=== PATIENT | female | born 1965 | race Caucasian/White ===

== ENCOUNTER 2017-08-18 20:37 | Emergency (ER) | payer BC ==
[~2017-08-18] VITALS: Ht 162.6 cm; Wt 78.6 kg
[~2017-08-18 20:37] MED LIST: ASPIRIN81 MG PO; RANITIDINE150 M1 OR; ULTRAM50 M1 OR
[2017-08-18] MEDS ORDERED: LEVOTHYROXIN50 MCG PO (20:47)
[2017-08-18 21:19] LABS: HEMATOCRIT 36.2 % (37.0-47.0); IMMATURE GRANULOCYTES 0.2 % (0.0-1.0); MEAN CELL VOLUME 88.1 fL CALC (80.0-100.0); MEAN CORPUSCULAR HGB 29.2 pG CALC (26.0-32.0); MEAN CORPUSCULAR HGB CONC 33.1 g/L CALC (32.0-36.0); NEUT# 2.18 thou/uL (2.00-7.15); RED BLOOD COUNT 4.11 mill/uL (4.20-5.60); RED CELL DISTRI WIDTH 12.6 % (11.5-15.5)
[2017-08-18 21:52] LABS: ALBUMIN 4.2 g/dL (3.2-5.0); ALKALINE PHOSPHATASE 88 u/l (38-126); ANION GAP 16 (6-22 (CALC)); BILIRUBIN, TOTAL 0.4 mg/dL (0.0-1.4); BUN 8 mg/dL (7-17); BUN/CREATININE RATIO 11 (12-20 (CALC)); CALCIUM 8.9 mg/dL (8.4-10.2); CARBON DIOXIDE 25 mmol/l (22-30); CHLORIDE 108 mmol/l (95-108); CREATININE 0.7 mg/dL (0.5-1.0); GFR > 60 ML/MIN (>=60 (CALC)); GFR FOR AFR.AMER. > 60 ML/MIN (>=60 (CALC)); GLUCOSE 111 mg/dL (65-105); POTASSIUM 3.6 mmol/l (3.5-5.1); SGOT/AST 23 u/l (14-36); SGPT/ALT 29 u/l (9-52); SODIUM 145 mmol/l (137-146); TOTAL PROTEIN 6.7 g/dL (6.3-8.2)
[2017-08-18 22:04] LABS: MYOGLOBIN 47 ng/mL (0 - 62)
[2017-08-18] MEDS ORDERED: TORADOL PO (22:58)
[2017-08-18 23:33] VITALS: BP 108/57
== END 2017-08-18 23:40 | disposition home or self-care (01) | DRG 313 ==
LOC: ED 20:37
PROVIDERS: Emergency Medicine
DX: R07.89 Other chest pain (principal)

== ENCOUNTER 2018-02-02 21:42 | Emergency (ER) | payer BC ==
[~2018-02-02] VITALS: Ht 162.6 cm; Wt 82.4 kg
[~2018-02-02 21:42] MED LIST changes: +LEVOTHYROXIN50 MCG PO; +TORADOL PO
[2018-02-02] MEDS ORDERED: PREDNISONE10 MG PO (22:32)
[2018-02-02] MEDS ORDERED: TRAMADOL HCL50 MG PO (22:32)
[2018-02-02 22:50] VITALS: BP 123/77
== END 2018-02-02 22:53 | disposition home or self-care (01) | DRG 552 ==
LOC: ED 21:42
DX: M54.42 Lumbago with sciatica, left side (principal); R20.0 Anesthesia of skin

== ENCOUNTER 2021-06-07 21:23 | Emergency (ER) | payer BC ==
[~2021-06-07] VITALS: Ht 162.6 cm; Wt 78.0 kg
[~2021-06-07 21:23] MED LIST changes: +PREDNISONE10 MG PO; +TRAMADOL HCL50 MG PO
[2021-06-07 21:39] VITALS: BP 132/77
[2021-06-07] MEDS ORDERED: IBUPROFEN600 MG PO (22:23)
== END 2021-06-07 22:38 | disposition home or self-care (01) | DRG 563 ==
LOC: ED 21:23
DX: S83.91XA Sprain of unspecified site of right knee, initial encounter (principal); S80.01XA Contusion of right knee, initial encounter; W19.XXXA Unspecified fall, initial encounter
CPT/HCPCS: L1830

== ENCOUNTER 2022-08-07 18:17 | Emergency (ER) | payer BC ==
[~2022-08-07 18:17] MED LIST changes: +IBUPROFEN600 MG PO
== END 2022-08-07 19:15 | disposition left against medical advice (07) | DRG 951 ==
LOC: ED 18:17 → LWOBS 19:15
DX: Z53.21 Procedure and treatment not carried out due to patient leaving prior to being seen by health care provider (principal)

== ENCOUNTER 2022-09-08 21:42 | Emergency (ER) | payer BC ==
[~2022-09-08] VITALS: Ht 162.6 cm; Wt 77.0 kg
[2022-09-08 21:59] VITALS: BP 126/70
[2022-09-08 22:15] VITALS: BP 108/63
[2022-09-08 22:30] VITALS: BP 104/64
[2022-09-08 22:58] LABS: BASO% 0.3 % (0-3); EOS% 1.5 % (0-8); HEMATOCRIT 35.1 % (37.0-47.0); HEMOGLOBIN 11.7 g/dl (12.0-16.0); IMMATURE GRANULOCYTES 0.1 % (0.0-5.0); LYMPH% 26.6 % (15-41); MEAN CORPUSCULAR HGB CONC 33.3 g/dL CAL (32.0-36.0); MONO% 9.9 % (2-13); NEUT# 4.24 thou/uL (2.00-7.15); NEUT% 61.6 % (42-76); RED BLOOD COUNT 3.9 mill/uL (4.20-5.60); RED CELL DISTRI WIDTH 12.7 % (11.5-15.5)
[2022-09-08 23:00] VITALS: BP 110/65
[2022-09-08 23:13] LABS: ALBUMIN 4.3 g/dL (3.2-5.0); ALKALINE PHOSPHATASE 78 u/l (38-126); ANION GAP 9 (6-22 (CALC)); BILIRUBIN, TOTAL 0.2 mg/dL (0.0-1.4); BUN 22 mg/dL (7-17); BUN/CREATININE RATIO 25 (12-20 (CALC)); CARBON DIOXIDE 28 mmol/l (22-30); CHLORIDE 107 mmol/l (95-108); CREATININE 0.9 mg/dL (0.5-1.0); GFR FOR AFR.AMER. > 60 ML/MIN (>=60 (CALC)); GFR OTHER RACES > 60 ML/MIN (>=60 (CALC)); POTASSIUM 3.9 mmol/l (3.5-5.1); SGOT/AST 24 u/l (14-36); SODIUM 140 mmol/l (137-146); TOTAL PROTEIN 6.8 g/dL (6.3-8.2)
[2022-09-08 23:15] VITALS: BP 112/62
[2022-09-08 23:21] LABS: URINE BILIRUBIN - DIPSTICK NEGATIVE (NEGATIVE); URINE BLOOD DIPSTICK NEGATIVE (NEGATIVE); URINE COLOR YELLOW; URINE GLUCOSE - DIPSTICK NEGATIVE (NEGATIVE); URINE KETONE NEGATIVE (NEGATIVE); URINE LEUK ESTERASE NEGATIVE (NEGATIVE); URINE PH 5.5 (4.5-8.0); URINE PROTEIN - DIPSTICK NEGATIVE (NEG-TRACE); URINE SPECIFIC GRAVITY >=1.030; URINE UROBILINOGEN - DIPSTICK 0.2 E.U./dL (0.2)
[2022-09-08 23:24] LABS: URINE NITRITE - DIPSTICK NEGATIVE (Negative)
[2022-09-08 23:30] VITALS: BP 119/74
[2022-09-09 00:23] VITALS: BP 119/74
[2022-09-09] MEDS ORDERED: CYCLOBENZAPRINE10 MG PO (00:23)
[2022-09-09] MEDS ORDERED: NAPROXEN500 MG PO (00:23)
== END 2022-09-09 00:46 | disposition home or self-care (01) | DRG 552 ==
LOC: ED 21:42
PROVIDERS: Emergency Medicine
DX: M47.816 Spondylosis without myelopathy or radiculopathy, lumbar region (principal)

== ENCOUNTER 2022-10-04 22:00 | Emergency (ER) | payer BC ==
[~2022-10-04] VITALS: Ht 160 cm; Wt 77.2 kg
[~2022-10-04 22:00] MED LIST changes: +CYCLOBENZAPRINE10 MG PO; +NAPROXEN500 MG PO
[2022-10-04 23:14] LABS: URINE BILIRUBIN - DIPSTICK NEGATIVE (NEGATIVE); URINE BLOOD DIPSTICK NEGATIVE (NEGATIVE); URINE COLOR YELLOW; URINE GLUCOSE - DIPSTICK NEGATIVE (NEGATIVE); URINE KETONE NEGATIVE (NEGATIVE); URINE LEUK ESTERASE TRACE (NEGATIVE); URINE PH 6.5 (4.5-8.0); URINE PROTEIN - DIPSTICK NEGATIVE (NEG-TRACE); URINE SPECIFIC GRAVITY 1.015; URINE UROBILINOGEN - DIPSTICK 0.2 E.U./dL (0.2)
[2022-10-04 23:16] LABS: BASO% 0.4 % (0-3); EOS% 0.8 % (0-8); HEMATOCRIT 39.6 % (37.0-47.0); HEMOGLOBIN 12.6 g/dl (12.0-16.0); IMMATURE GRANULOCYTES 0.5 % (0.0-5.0); LYMPH% 23.3 % (15-41); MEAN CELL VOLUME 88.6 fL CALC (80.0-100.0); MEAN CORPUSCULAR HGB 28.2 pG CALC (26.0-32.0); MEAN CORPUSCULAR HGB CONC 31.8 g/dL CAL (32.0-36.0); MONO% 9.9 % (2-13); NEUT# 5.09 thou/uL (2.00-7.15); NEUT% 65.1 % (42-76); RED BLOOD COUNT 4.47 mill/uL (4.20-5.60); RED CELL DISTRI WIDTH 12.6 % (11.5-15.5)
[2022-10-04 23:18] LABS: URINE NITRITE - DIPSTICK NEGATIVE (Negative)
[2022-10-04 23:27] LABS: ALBUMIN 4.4 g/dL (3.2-5.0); ALKALINE PHOSPHATASE 83 u/l (38-126); ANION GAP 9 (6-22 (CALC)); BUN 13 mg/dL (7-17); BUN/CREATININE RATIO 18 (12-20 (CALC)); CARBON DIOXIDE 26 mmol/l (22-30); CHLORIDE 105 mmol/l (95-108); CREATININE 0.7 mg/dL (0.5-1.0); GFR FOR AFR.AMER. > 60 ML/MIN (>=60 (CALC)); GFR OTHER RACES > 60 ML/MIN (>=60 (CALC)); POTASSIUM 3.8 mmol/l (3.5-5.1); SGOT/AST 28 u/l (14-36); SODIUM 136 mmol/l (137-146); TOTAL PROTEIN 7.2 g/dL (6.3-8.2)
[2022-10-04 23:29] LABS: BILIRUBIN, TOTAL 0.5 mg/dL (0.02-1.3)
[2022-10-05] VITALS (10 sets, daily range): BP systolic 92–108; BP diastolic 61–73
[2022-10-05] MEDS ORDERED: TRAMADOL HCL50 MG PO (02:07)
== END 2022-10-05 03:00 | disposition home or self-care (01) | DRG 392 ==
LOC: ED 22:00
PROVIDERS: Family Medicine
DX: R19.00 Intra-abdominal and pelvic swelling, mass and lump, unspecified site (principal); R10.32 Left lower quadrant pain
CPT/HCPCS: Q9967

== ENCOUNTER 2023-10-07 16:48 | Emergency (ER) | payer BC ==
[~2023-10-07] VITALS: Ht 160 cm; Wt 77.1 kg
[2023-10-07 17:27] VITALS: BP 115/66
[2023-10-07 17:30] VITALS: BP 108/71
[2023-10-07 17:45] VITALS: BP 101/72
[2023-10-07] MEDS ORDERED: Diph, Acellular Pertussis, Tet 0.5 ML/VIAL (Tdap) SDV IM ONE (17:45)
[2023-10-07 17:56] VITALS: BP 101/72
== END 2023-10-07 18:21 | disposition home or self-care (01) | DRG 605 ==
LOC: ED 16:48
DX: S91.331A Puncture wound without foreign body, right foot, initial encounter (principal); W45.0XXA Nail entering through skin, initial encounter